=== PATIENT | female | born 1980 | race Asian ===

== ENCOUNTER 2016-07-16 09:53 | Emergency (ER) | payer OTHER ==
[~2016-07-16] VITALS: Ht 172.7 cm; Wt 97.5 kg
[2016-07-16 10:12] VITALS: TEMP 98.7
[2016-07-16 11:43] LABS: PLATELET COUNT 275 K/uL (152-353)
[2016-07-16 11:51] LABS: POTASSIUM 3.9 mmol/L (3.6-5.2); SODIUM 137 mmol/L (136-145)
[2016-07-16 13:40] VITALS: BP 148/82
== END 2016-07-16 13:42 | disposition home or self-care (01) ==
LOC: ED 09:53
PROVIDERS: Specialist
DX: F32.89 Other specified depressive episodes (principal); R45.851 Suicidal ideations; F10.10 Alcohol abuse, uncomplicated
CPT/HCPCS: 36415; 80053; 80307; 80320; 80329; 81000; 83735; 85027; 99283; G0479